=== PATIENT | female | born 1930 | race Caucasian/White ===

== ENCOUNTER 2017-08-21 14:33 | Emergency (ER) | payer MEDICARE ==
[~2017-08-21] VITALS: Ht 165.1 cm; Wt 74.0 kg
[~2017-08-21 14:33] MED LIST: ESOM40CA PO; IBUP-2028 PO; LORA-250 PO; LORA1TAB PO; MULT-1146 PO; TRAM50TA3 PO
[2017-08-21 16:08] LABS: BASOPHILS % 0.7 % (0.0-2.0); HEMATOCRIT. 41.5 % (36.0-48.0); HEMOGLOBIN. 14.1 g/dL (12.0-16.0); MEAN CORPUSCULAR HEMOGLOBIN 32.8 pg (28.0-32.0); MEAN CORPUSCULAR VOLUME 96.6 fL (81.0-99.0); MEAN PLATELET VOLUME 8.1 fl (7.4-10.4); MONOCYTES % 9.1 % (2.0-8.0); NEUTROPHILS % 74.2 % (40.0-76.0); PLATELET 193 x1000/uL (130-400); RED BLOOD CELL COUNT 4.29 mill/uL (4.2-5.4); RED CELL DISTRIBUTION WIDTH 13.6 % (11.6-14.6)
[2017-08-21 16:12] LABS: CHLORIDE 106 mEq/L (98-107)
[2017-08-21 17:00] VITALS: BP 123/75
== END 2017-08-21 17:05 | disposition home or self-care (01) ==
LOC: ER 14:47 → CANBEDREQ 08-22 00:09
DX: F03.90 Unspecified dementia, unspecified severity, without behavioral disturbance, psychotic disturbance, mood disturbance, and anxiety (principal); R94.31 Abnormal electrocardiogram [ECG] [EKG]
CPT/HCPCS: 36415; 71045; 80053; 85025; 93005; 99285

== ENCOUNTER 2017-09-03 06:14 | Emergency (ER) | payer MEDICARE ==
[~2017-09-03] VITALS: Ht 165.1 cm; Wt 79.0 kg
[2017-09-03 10:41] VITALS: BP 132/71
== END 2017-09-03 10:54 | disposition home or self-care (01) ==
LOC: ER 06:14
DX: S80.02XA Contusion of left knee, initial encounter (principal); W18.11XA Fall from or off toilet without subsequent striking against object, initial encounter; Y93.89 Activity, other specified; Y92.012 Bathroom of single-family (private) house as the place of occurrence of the external cause; M17.12 Unilateral primary osteoarthritis, left knee; R03.0 Elevated blood-pressure reading, without diagnosis of hypertension; F03.90 Unspecified dementia, unspecified severity, without behavioral disturbance, psychotic disturbance, mood disturbance, and anxiety; Z79.899 Other long term (current) drug therapy
CPT/HCPCS: 73502; 73562; 73700; 99284

== ENCOUNTER 2017-11-25 15:46 | Emergency (ER) | payer MEDICARE ==
[~2017-11-25] VITALS: Ht 162.6 cm; Wt 60.0 kg
[2017-11-25 15:53] VITALS: BP 123/67
[2017-11-25 18:19] LABS: BASOPHILS % 1.1 % (0.0-2.0); EOSINOPHILS % 3.2 % (0.0-5.0); HEMATOCRIT. 40.6 % (36.0-48.0); HEMOGLOBIN. 13.7 g/dL (12.0-16.0); LYMPHOCYTES % 18.7 % (20.0-50.0); MEAN CORPUSCULAR VOLUME 97.6 fL (81.0-99.0); MEAN PLATELET VOLUME 8.2 fl (7.4-10.4); MONOCYTES % 10.3 % (2.0-8.0); NEUTROPHILS % 66.7 % (40.0-76.0); PLATELET 182 x1000/uL (130-400); RED BLOOD CELL COUNT 4.16 mill/uL (4.2-5.4); RED CELL DISTRIBUTION WIDTH 13.6 % (11.6-14.6)
[2017-11-25 18:25] LABS: CHLORIDE 104 mEq/L (98-107)
[2017-11-25 18:27] LABS: PROTHROMBIN TIME 10.4 sec (9.1-11.1)
== END 2017-11-25 19:21 | disposition home or self-care (01) ==
LOC: ER 16:06
DX: S00.83XA Contusion of other part of head, initial encounter (principal); M25.552 Pain in left hip; M25.562 Pain in left knee; Y93.89 Activity, other specified; F03.90 Unspecified dementia, unspecified severity, without behavioral disturbance, psychotic disturbance, mood disturbance, and anxiety; R03.0 Elevated blood-pressure reading, without diagnosis of hypertension; Y93.01 Activity, walking, marching and hiking; W01.0XXA Fall on same level from slipping, tripping and stumbling without subsequent striking against object, initial encounter; Y92.091 Bathroom in other non-institutional residence as the place of occurrence of the external cause
CPT/HCPCS: 36415; 70450; 70486; 71045; 72170; 73562; 80053; 84484; 85025; 85610; 85730; 93005; 99285

== ENCOUNTER 2018-06-13 05:14 | Inpatient (IN) | payer MEDICARE ==
[~2018-06-13] VITALS: Ht 165.1 cm; Wt 94.8 kg
[2018-06-13] MEDS ORDERED: HALOPERIDOL LACTATE 5MG/ML VIAL IM ONE ×2 (06:45→07:15)
[2018-06-13 07:13] LABS: BASOPHILS % 0.5 % (0.0-2.0); EOSINOPHILS % 2.1 % (0.0-5.0); HEMATOCRIT. 38.7 % (36.0-48.0); HEMOGLOBIN. 12.8 g/dL (12.0-16.0); LYMPHOCYTES % 13.1 % (20.0-50.0); MEAN CORPUSCULAR HEMOGLOBIN 32.2 pg (28.0-32.0); MEAN CORPUSCULAR VOLUME 97.2 fL (81.0-99.0); MEAN PLATELET VOLUME 8.7 fl (7.4-10.4); MONOCYTES % 6.1 % (2.0-8.0); NEUTROPHILS % 78.2 % (40.0-76.0); PLATELET 192 x1000/uL (130-400); RED BLOOD CELL COUNT 3.98 mill/uL (4.2-5.4); RED CELL DISTRIBUTION WIDTH 14.5 % (11.6-14.6)
[2018-06-13 07:19] LABS: CHLORIDE 107 mEq/L (98-107)
[2018-06-13] MEDS ORDERED: METHYLPREDNISOLONE SOD SUCC 125 MG/2 ML VIAL IV STA (07:34)
[2018-06-13] MEDS ORDERED: NITROGLYCERIN OINT 1GM/INCH UDPKT TD ONE (07:45)
[2018-06-13] MEDS ORDERED: FUROSEMIDE 40MG/4ML VIAL IV ONE (07:45)
[2018-06-13] MEDS ORDERED: LORAZEPAM 2MG/ML CPJ IV ONE (07:45)
[2018-06-13] MEDS ORDERED: ASPIRIN 81MG TABLET PO ONE (07:45)
[2018-06-13] MEDS ORDERED: ACETAMINOPHEN 650MG SUPP PR PRN (09:15)
[2018-06-13] MEDS ORDERED: HYDROCODONE/ACETAMINOPHEN 5/325MG TABLET PO PRN (09:15)
[2018-06-13] MEDS ORDERED: IPRATROPIUM/ALBUTEROL 0.5-3(2.5)MG/3ML NEB INH SCH (09:15)
[2018-06-13] MEDS ORDERED: LORAZEPAM 0.5MG TABLET PO PRN (09:15)
[2018-06-13] MEDS ORDERED: NA PHOS,M-B/NA PHOS,DI-BA ENEMA 118ML PR PRN (09:15)
[2018-06-13] MEDS ORDERED: ACETAMINOPHEN 325MG TABLET PO PRN (09:15)
[2018-06-13] MEDS ORDERED: MAGNESIUM/ALUMINUM HYDROXIDE/SIMETHICONE 30ML UDC PO PRN (09:15)
[2018-06-13] MEDS ORDERED: CLONIDINE 0.1MG TABLET PO PRN (09:15)
[2018-06-13] MEDS ORDERED: IPRATROPIUM/ALBUTEROL 0.5-3(2.5)MG/3ML NEB INH PRN (09:15)
[2018-06-13] MEDS ORDERED: DOCUSATE SODIUM 100MG CAPSULE PO PRN (09:15)
[2018-06-13] MEDS ORDERED: ONDANSETRON HCL 4MG/2ML INJ IV PRN (09:15)
[2018-06-13] MEDS ORDERED: GUAIFENESIN 200MG/10ML SUGAR FREE UDC PO PRN (09:15)
[2018-06-13] MEDS ORDERED: EPINEPHRINE 0.1MG/ML (1:10,000) 10ML SYR ONE (09:19)
[2018-06-13] MEDS ORDERED: ATROPINE SULFATE 1MG/10ML SYR ONE ×2 (09:19→13:04)
[2018-06-13] MEDS ORDERED: MAGNESIUM SULFATE 4G IN WATER 100ML PREMIX IV ONE (09:19)
[2018-06-13] MEDS ORDERED: AMIODARONE HCL 50MG/ML 3ML VIAL IV ONE (09:19)
[2018-06-13] MEDS ORDERED: SODIUM BICARBONATE 8.4% MEQ/ML 50ML VIAL IV ONE (09:19)
[2018-06-13] MEDS ORDERED: DEXTROSE 50% WATER 50ML SYRINGE IV PRN (11:00)
[2018-06-13] MEDS: DIPHENHYDRAMINE 50MG/ML VIAL IV PRN ×3 (11:02→22:30)
[2018-06-13 11:42] LABS: BG BASE EXCESS 1.7 mmol/L (-2.0-2.0); BG CARBOXYHEMOGLOBIN 0.7 % (0.5-1.5); BG DEOXYHEMOGLOBIN 10.9 % (0.0-5.0); BG FRACTION INSPIRED OXYGEN 21; BG METHEMOGLOBIN 0.1 % (0.0-1.5); BG OXYHEMOGLOBIN 88.3 % (94.0-97.0); BG PH 7.472 (7.350-7.450); BG PO2 55.1 mmHg (75.0-100.0); BG SAMPLE SITE RIGHT BRACHIAL; BG TOTAL HEMOGLOBIN 13.1 g/dL (12.0-18.0); BG VENT MODE ROOM AIR
[2018-06-13 11:54] LABS: PROTHROMBIN TIME 10.6 sec (9.6-11.0)
[2018-06-13] MEDS ORDERED: SODIUM CHLORIDE 0.9% 10ML VIAL ONE (13:04)
[2018-06-13] MEDS ORDERED: ETOMIDATE 2MG/ML 10ML VIAL IV ONE (13:04)
[2018-06-13] MEDS ORDERED: VECURONIUM BROMIDE 10 MG/VIAL IV ONE (13:04)
[2018-06-13 14:54] LABS: CREATINE KINASE MB FRACTION 2.1 ng/mL (0.5-3.6)
[2018-06-13 15:20] LABS: CLARITY URINE CLEAR (CLEAR); COLOR URINE YELLOW (YELLOW); KETONES URINE NEGATIVE (NEGATIVE); LEUKOCYTE ESTERASE URINE NEGATIVE (NEGATIVE); NITRITE URINE NEGATIVE (NEGATIVE); OCCULT BLOOD URINE NEGATIVE (NEGATIVE); PH URINE 6.5 (4.5-8.0); PROTEIN URINE 1+ (NEGATIVE); SPECIFIC GRAVITY URINE 1.006 (1.005-1.030); UROBILINOGEN URINE 0.2 E.U./dL (0.2-1.0)
[2018-06-13 15:34] LABS: *AMPHETAMINES SCREEN URINE NEGATIVE (NEGATIVE); *BARBITURATES SCREEN URINE NEGATIVE (NEGATIVE); *BENZODIAZEPINES SCREEN URINE NEGATIVE (NEGATIVE)
[2018-06-13 15:35] LABS: *COCAINE SCREEN URINE NEGATIVE (NEGATIVE); CANNABINOID URINE SCREEN NEGATIVE (NEGATIVE); METHADONE URINE SCREEN NEGATIVE (NEGATIVE); OPIATES URINE SCREEN NEGATIVE (NEGATIVE); PHENCYCLIDINE URINE SCREEN NEGATIVE (NEGATIVE)
[2018-06-13] MEDS: IPRATROPIUM/ALBUTEROL 0.5-3(2.5)MG/3ML NEB INH SCH ×3 (15:59→23:52)
[2018-06-13 21:30] VITALS: BP 95/53
[2018-06-13] MEDS: INSULIN LISPRO 100 UNITS/ML SUBCUT SCH (21:30)
[2018-06-13] MEDS: BLOOD SUGAR DIAGNOSTIC STRIP TEST SCH (21:30)
[2018-06-13] MEDS ORDERED: ENOXAPARIN 40MG/0.4ML SYR SUBCUT SCH (21:45)
[2018-06-13] MEDS: METHYLPREDNISOLONE SOD SUCC 40 MG/ML VIAL IV SCH (22:30)
[2018-06-13] MEDS: PIPERACILLIN/TAZ 3.375G PREMIX 50 ML IV SCH (22:31)
[2018-06-13] MEDS: TRIAMCINOLONE ACETONIDE 0.1 % OINT 15GM TOP SCH (22:32)
[2018-06-13 22:53] LABS: CREATINE KINASE MB FRACTION 2.7 ng/mL (0.5-3.6)
[2018-06-14] VITALS: BP 101/60
[2018-06-14 04:00] VITALS: BP 114/66
[2018-06-14] MEDS: IPRATROPIUM/ALBUTEROL 0.5-3(2.5)MG/3ML NEB INH SCH ×4 (04:00→14:49)
[2018-06-14] MEDS: PIPERACILLIN/TAZ 3.375G PREMIX 50 ML IV SCH ×2 (04:50→13:44)
[2018-06-14] MEDS: BLOOD SUGAR DIAGNOSTIC STRIP TEST SCH ×2 (06:09→12:50)
[2018-06-14 06:49] LABS: CHLORIDE 106 mEq/L (98-107)
[2018-06-14 07:02] LABS: LDL CHOLESTEROL 96 mg/dL (5-100)
[2018-06-14 07:03] LABS: HDL CHOLESTEROL 60 mg/dL (40-59); T4 FREE 1.17 ng/dL (0.76-1.46)
[2018-06-14 07:15] LABS: HEMATOCRIT. 35.6 % (36.0-48.0); HEMOGLOBIN. 11.9 g/dL (12.0-16.0); MEAN CORPUSCULAR HEMOGLOBIN 32.3 pg (28.0-32.0); MEAN CORPUSCULAR VOLUME 96.7 fL (81.0-99.0); MEAN PLATELET VOLUME 8.8 fl (7.4-10.4); PLATELET 193 x1000/uL (130-400); RED BLOOD CELL COUNT 3.69 mill/uL (4.2-5.4); RED CELL DISTRIBUTION WIDTH 14.4 % (11.6-14.6)
[2018-06-14 08:00] VITALS: BP 113/62
[2018-06-14] MEDS ORDERED: FUROSEMIDE 40MG/4ML VIAL IVP SCH (09:00)
[2018-06-14] MEDS: METHYLPREDNISOLONE SOD SUCC 40 MG/ML VIAL IV SCH (09:23)
[2018-06-14] MEDS: TRIAMCINOLONE ACETONIDE 0.1 % OINT 15GM TOP SCH (09:23)
[2018-06-14] MEDS: INSULIN LISPRO 100 UNITS/ML SUBCUT SCH ×2 (10:03→13:43)
[2018-06-14 11:28] LABS: PLATELET ESTIMATE NORMAL
[2018-06-14 12:00] VITALS: BP 117/51
[2018-06-14] MEDS ORDERED: METHYLPREDNISOLONE SOD SUCC 125 MG/2 ML VIAL IV NR (16:15)
== END 2018-06-14 20:40 | disposition expired | DRG 193 ==
LOC: ER 05:14 → 7WST 08:26 → EDBEDREQ 08:35 → EDBEDREQTM 08:35 → EDBEDREQSVC 08:35 → ENRESERV 20:06 → CANRESERV 20:06 → ENRESERV 20:28
PROVIDERS: ADMIT Internal Medicine; ATTEND Internal Medicine
PROC: 0BH17EZ Insertion of Endotracheal Airway into Trachea, Via Natural or Artificial Opening (ICD-10-PCS; principal; 2018-06-14)
PROC: 06HY33Z Insertion of Infusion Device into Lower Vein, Percutaneous Approach (ICD-10-PCS; 2018-06-14)
PROC: 5A12012 Performance of Cardiac Output, Single, Manual (ICD-10-PCS; 2018-06-14)
PROC: 5A2204Z Restoration of Cardiac Rhythm, Single (ICD-10-PCS; 2018-06-14)
DX: J12.9 Viral pneumonia, unspecified (principal); J96.01 Acute respiratory failure with hypoxia; G93.40 Encephalopathy, unspecified; J44.1 Chronic obstructive pulmonary disease with (acute) exacerbation; J44.0 Chronic obstructive pulmonary disease with (acute) lower respiratory infection; R17 Unspecified jaundice; I47.2 Ventricular tachycardia; E87.2 Acidosis; I49.01 Ventricular fibrillation; R73.9 Hyperglycemia, unspecified; F03.90 Unspecified dementia, unspecified severity, without behavioral disturbance, psychotic disturbance, mood disturbance, and anxiety; Z79.899 Other long term (current) drug therapy; Z78.1 Physical restraint status
CPT/HCPCS: 36415; 36600; 71045; 80061; 80305; 82375; 82550; 82553; 82805; 82962; 83036; 83880; 84439; 84443; 84484; 93005; 93306; 93970; 96374; 96375; 97162; 99291; A6261; J0282; J0461; J1200; J1630; J1650; J1815; J1940; J2060; J2543; J2920; J2930; J3475; J3490; J7050; J7620